=== PATIENT | female | born 1930 | race Caucasian/White ===

== ENCOUNTER 2016-06-01 07:46 | Emergency (ER) | payer MEDICARE, OTHER ==
[~2016-06-01] VITALS: Ht 170.2 cm; Wt 72.6 kg
[2016-06-01] MEDS ORDERED: IV NORMAL SALINE 1,000ML 1,000 ML IV SCH (08:01)
--- NOTE | 2016-06-01 08:12 | EKG ---
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
--- NOTE | 2016-06-01 08:14 | PHYS DOC ---
General Chief Complaint: MECHANICAL FALL Stated Complaint: MECHANICAL FALL;EYEBROW LAC Time Seen by MD: 07:52 Source: patient Exam Limitations: no limitations Problems: History of Present Illness Initial Comments Pt is 85/F to ED with fall injury. 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 She started getting dizzy with activity and even while lying in bed. Immediately prior to arrival pt stood up and began walking, said she was very dizzy and fell forward hitting right face on door knob. 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 No neck pain/n/v/focal neuro sx, pt c/o right sided GIL and cut over her eye. No vision changes/ear or nose drainage Td status unknown. No anticoagulation, pt only home med is ASA. Occurred: just prior to arrival Severity: moderate Injuries/Pain Location: head, face Context: lightheaded, lost balance Loss of Consciousness: no loss of consciousness Modifying Factors: worse with jarring, worse with movement, improves with rest Associated Symptoms: dizziness, headache, lightheadedness, trouble walking, other Allergies: Coded Allergies: No Known Drug Allergies (Unverified , 06/01/16) Past Medical History Medical History: other (breast cancer) Surgical History: other (Right mastectomy) Social History Smoker: non-smoker Alcohol: none Drugs: none Review of Systems Constitutional: denies chills, denies diaphoresis, denies fever, malaise Eyes: see HPIdenies blindness, denies blurred vision, denies foreign body sensation, denies photophobia Ears, Nose, Mouth, Throat: denies ear discharge, denies nose discharge, denies epistaxis, denies mouth swelling, denies throat pain, denies throat swelling Respiratory: denies cough, denies shortness of breath, denies wheezing Cardiovascular: denies chest pain, denies palpitations, denies syncope Gastrointestinal: denies abdominal pain, denies diarrhea, denies nausea, denies vomiting Genitourinary: denies discharge, denies frequency, denies hematuria Musculoskeletal: denies back pain, denies joint swelling, denies neck pain Skin: see HPI Psychiatric/Neurological: see HPI headachedenies numbness, denies paresthesia Physical Exam Head: other (R supraorbital swelling with brow lac no palpable bony deform, R malar swell/ecchy with skin avulsion no palpable deform, negative raccoon eyes no krishnan sign) Eyes: bilateral eye EOMI, bilateral eye PERRL, bilateral eye normal inspection Ears, Nose, Mouth, Throat: hearing grossly normal (hearing aids, no ear/nose disch ), no evidence of ENT injury, no dental injury Neck: non-tender, normal alignment Cardiovascular/Respiratory: normal peripheral pulses, no respiratory distress Gastrointestinal: non tender, soft Back: no CVA tenderness, no vertebral tenderness Extremities: no evidence of injury (small skin avulsion/ecchymoses medial right forearm), normal range of motion, non-tender 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, no motor/sensory deficits, alert, normal mood/affect, oriented x 3 Skin: normal color, warm/dry (lacs/avulsions as above) [place] Coma Score Best Eye Response: (4) open spontaneously Best Verbal Response: (5) oriented Best Motor Response: (6) obeys commands Sebastián Total: 15 Laceration/Wound Repair Laceration/Wound Repair : Wound Location: face (R supraorbital) Wound's Depth, Shape: superficial, linear Wound Length (cm): 1 Wound Explored: clean Irrigated w/ Saline (ccs): 50 Betadine Prep?: Yes Anesthesia: Lidocaine w/ Epi Volume Anesthetic (ccs): 3 Wound Debrided: minimal Wound Repaired With: sutures Suture Size/Type: 4:0, nylon Number of Sutures: 3 Sterile Dressing Applied?: Yes Progress Informed consent, sterile technique. Wound prepped by RN. Images no fracture. After analgesia 3 4-0 ethilon sutures with good wound edge approximation. Tolerated well no complication see departure for wound care. Orders, Labs, Meds EKG: NSR 65 bpm, T inversion v2 likely placement no STEMI Td vaccination, 1L NS IV bolus, rocephin 1g IV, tylenol 650mg given in ED. PATIENT: URIEL MAGALLANES ACCOUNT: [id number] : 1930 LOCATION: ER AGE: 85 SEX: F EXAM STATUS: REG ER ORD. PHYSICIAN: VERENICE KHAN DO REASON: Fall, R facial trauma PROCEDURE: CERVICAL SPINE WO CONTRAST Indication fall, neck pain. Axial images of the cervical spine were obtained. Images were reformatted in the coronal and sagittal planes. There is some scarring at the lung apices. Acute finding at either lung apex is not seen. A significant soft tissue finding in the neck is not seen. Review of axial images shows no acute finding. Spondylitic changes are noted. Facet arthropathy is seen at several levels. The reformatted images in the coronal and sagittal planes confirm degenerative changes but show no evidence of fracture. IMPRESSION: Spondylitic changes. No fracture seen PQRS Compliance Statement: One or more of the following individualized dose reduction techniques were utilized for this examination: 1. Automated exposure control 2. Adjustment of the mA and/or kV according to patient size 3. Use of iterative reconstruction technique DICTATED AND SIGNED BY: CHRIS WHALEY MD DATE: 06/01/16855 CC: ELLEN ACOSTA MD; VERENICE KHAN DO ~ PATIENT: URIEL MAGALLANES ACCOUNT: [id number] : 1930 LOCATION: ER AGE: 85 SEX: F EXAM STATUS: REG ER ORD. PHYSICIAN: VERENICE KHAN DO REASON: Fall, R facial trauma PROCEDURE: HEAD AND MAXILLOFACIAL WO Indication fall. Injury to the head and face. The head and maxillofacial structures were evaluated. Maxillofacial images were reformatted in the coronal and sagittal planes. No prior CT imaging of the chest is available. CT head: Findings. The calvarium appears unremarkable and the visualized paranasal sinuses appear normal. There is no subdural or epidural hematoma. The ventricles and sulci are within normal limits given the patient's age. No mass or midline shift is seen. There is no evidence of hemorrhage. Maxillofacial CT: Findings. Soft tissue injury over the right forehead and cheek is noted. The paranasal sinuses appear unremarkable. The zygomatic arches appear normal. No fracture is seen involving the mandible. No maxillary fracture is seen. The medial and lateral miller of the orbits appear normal. No facial fracture is seen. IMPRESSION: Negative study for facial fracture. No acute finding seen in the head PQRS Compliance Statement: One or more of the following individualized dose reduction techniques were utilized for this examination: 1. Automated exposure control 2. Adjustment of the mA and/or kV according to patient size 3. Use of iterative reconstruction technique DICTATED AND SIGNED BY: CHRIS WHALEY MD DATE: 06/01/16 0903 CC: ELLEN ACOSTA MD; VERENICE KHAN DO ~ Feeling better after hydration dizziness resolved. Pt expressed agreement/ understanding with treatment plan. Departure Time of Disposition: 10:21 Disposition: 01 HOME, SELF-CARE Diagnosis: Facial laceration, concussion, fall, hypovolemia, Condition: IMPROVED Patient Instructions: Concussion and Brain Injury, [id number], Dehydration, Adult, [id number], Fall Prevention and Home Safety, [id number]-[id number], Sutured Wound Care, Yvec-vp-[id number] Additional Instructions: Rest, no strenuous activity. Take care and request assistance with standing and walking. OTC tylenol as needed. Rx: cephalexin, bactroban, take as directed. Wound Care: Keep wound dry for 48 hours. After 48 hours wash wound twice daily with soap and warm water, blot dry. Change dressing and apply bactroban after each wash. Allow wound to air dry one hour daily. Follow up with your doctor in 3-5 days for wound check. Return to ED in 7 days for wound check/possible suture removal. Rx: cephalexin, bactroban VERENICE KHAN DO Jun 01, 2016 08:14
[2016-06-01] MEDS ORDERED: ACETAMINOPHEN 325 MG TABLET PO ONE (08:30)
[2016-06-01] MEDS ORDERED: TETANUS AND DIPHTHERIA TOX/PF 0.5 ML VIAL. VAX IM ONE (08:30)
[2016-06-01] MEDS ORDERED: CEFTRIAXONE SODIUM 1 GM in IV NORMAL SALINE 50ML 50 ML IV ONE (08:30)
[2016-06-01 08:34] LABS: BASO % 1 % (0-3); EOS # 0.1 x10^3/uL (0.0-0.7); EOS % 2 % (0-3); HEMATOCRIT 40.7 % (36.0-47.0); HEMOGLOBIN 13.3 g/dL (12.0-15.5); LYMPH # 0.9 x10^3/uL (1.0-4.8); LYMPH % 18 % (24-48); MEAN CORPUSCULAR HEMOGLOBIN 29 pg (25-35); MEAN CORPUSCULAR HGB CONC 33 g/dL (31-37); MEAN CORPUSCULAR VOLUME 88 fL (79-100); MONO # 0.4 x10^3/uL (0.0-1.1); MONO % 8 % (0-9); NEUT # 3.8 x10^3uL (1.8-7.7); NEUT % 71 % (31-73); PLATELET COUNT 214 x10^3/uL (140-400); RED BLOOD COUNT 4.62 x10^6/uL (3.50-5.40); RED CELL DISTRIBUTION WIDTH 13.7 % (11.5-14.5); WHITE BLOOD COUNT 5.3 x10^3/uL (4.0-11.0)
[2016-06-01 08:39] LABS: CALCIUM 8.3 mg/dL (8.5-10.1); CREATININE 0.8 mg/dL (0.6-1.0); GFR 67.8; POTASSIUM 4.2 mmol/L (3.5-5.1)
[2016-06-01] MEDS ORDERED: IV NORMAL SALINE 50ML 50 ML ONE (08:48)
[2016-06-01] MEDS ORDERED: CEFTRIAXONE SODIUM 1 GM VIAL IV ONE (08:48)
--- NOTE | 2016-06-01 09:04 | RAD ---
Indication fall, neck pain. Axial images of the cervical spine were obtained. Images were reformatted in the coronal and sagittal planes. There is some scarring at the lung apices. Acute finding at either lung apex is not seen. A significant soft tissue finding in the neck is not seen. Review of axial images shows no acute finding. Spondylitic changes are noted. Facet arthropathy is seen at several levels. The reformatted images in the coronal and sagittal planes confirm degenerative changes but show no evidence of fracture. IMPRESSION: Spondylitic changes. No fracture seen PQRS Compliance Statement: One or more of the following individualized dose reduction techniques were utilized for this examination: 1. Automated exposure control 2. Adjustment of the mA and/or kV according to patient size 3. Use of iterative reconstruction technique
[2016-06-01] MEDS ORDERED: LIDOCAINE 2%/EPI 1:100,000 20 ML VIAL. IJ ONE (09:15)
--- NOTE | 2016-06-01 09:30 | RAD ---
Indication fall. Injury to the head and face. The head and maxillofacial structures were evaluated. Maxillofacial images were reformatted in the coronal and sagittal planes. No prior CT imaging of the chest is available. CT head: Findings. The calvarium appears unremarkable and the visualized paranasal sinuses appear normal. There is no subdural or epidural hematoma. The ventricles and sulci are within normal limits given the patient's age. No mass or midline shift is seen. There is no evidence of hemorrhage. Maxillofacial CT: Findings. Soft tissue injury over the right forehead and cheek is noted. The paranasal sinuses appear unremarkable. The zygomatic arches appear normal. No fracture is seen involving the mandible. No maxillary fracture is seen. The medial and lateral miller of the orbits appear normal. No facial fracture is seen. IMPRESSION: Negative study for facial fracture. No acute finding seen in the head PQRS Compliance Statement: One or more of the following individualized dose reduction techniques were utilized for this examination: 1. Automated exposure control 2. Adjustment of the mA and/or kV according to patient size 3. Use of iterative reconstruction technique
[2016-06-01 10:15] VITALS: BP 138/64
[2016-06-01] MEDS ORDERED: MUPI15CR TP (10:27)
[2016-06-01] MEDS ORDERED: CEPH500C PO (10:27)
== END 2016-06-01 10:37 | disposition home or self-care (01) ==
LOC: ER 07:46
DX: S01.81XA Laceration without foreign body of other part of head, initial encounter (principal); K59.00 Constipation, unspecified; Z90.11 Acquired absence of right breast and nipple; W01.198A Fall on same level from slipping, tripping and stumbling with subsequent striking against other object, initial encounter; Y93.89 Activity, other specified; Y92.89 Other specified places as the place of occurrence of the external cause; Y99.8 Other external cause status
CPT/HCPCS: 36415; 70450; 70486; 72125; 80048; 85027; 90471; 90714; 93005; 96365; 99285; J0696; J7030

== ENCOUNTER 2016-06-04 11:07 | Emergency (ER) | payer MEDICARE, OTHER ==
[~2016-06-04] VITALS: Ht 170.2 cm; Wt 72.6 kg
[~2016-06-04 11:07] MED LIST: CEPH500C PO; MUPI15CR TP
--- NOTE | 2016-06-04 11:39 | PHYS DOC ---
General Chief Complaint: ALTERED MENTAL STATUS Stated Complaint: TREMORS Time Seen by MD: 11:16 Source: patient, EMS, old records Exam Limitations: no limitations Problems: History of Present Illness Initial Comments Pt is 85/F to ED via EMS for possible seizure. Pt states that immediately prior to arrival while sitting in chapel she began to feel very warm all over and diaphoretic. She's not certain, but thinks she may have passed out briefly. She reports that her left arm began shaking and jerking uncontrollably. This lasted approximately 10 minutes before resolving spontaneously. No headache, no numbness/tingling/radiating symptoms, no confusion/n/v/bowel or bladder incontinence. No prior seizure or similar symptoms. Pt was seen here 06/01 after falling, suffered a head injury and CT head/ maxillofacial/cervical spine all unremarkable on that day. She reports that she had been feeling better since the fall aside from constipation issues she has chronically. Timing/Duration: 1/2 hour Severity: moderate Modifying Factors: improves with other Associated Symptoms: other Allergies: Coded Allergies: No Known Drug Allergies (Unverified , 06/01/16) Past Medical History Medical History: other (breast cancer, DVT, osteoporosis) Surgical History: noncontributory (mastectomy, femur fracture) Social History Smoker: non-smoker Alcohol: none Drugs: none Review of Systems Constitutional: see HPIdenies chills, diaphoresisdenies fever, malaise weakness EENTM: denies eye pain, denies ear pain, denies nose pain Respiratory: denies cough, denies shortness of breath, denies wheezing Cardiovascular: denies chest pain, denies palpitations, syncope Gastrointestinal: denies abdominal pain, constipationdenies diarrhea, denies nausea, denies vomiting Genitourinary: denies dysuria, denies frequency, denies hematuria Musculoskeletal: see HPI back paindenies joint swelling Psychiatric/Neurological: see HPIdenies headache, denies numbness, denies paresthesia, denies tingling Hematologic/Lymphatic: see HPI Physical Exam General Appearance: WD/WN, no apparent distress Eyes: bilateral eye EOMI, bilateral eye PERRL, bilateral eye normal inspection Ear, Nose, Throat: hearing grossly normal, normal ENT inspection, normal pharynx, other (bruising/swelling/facial lacerations per HPI all appear to be healing well) Neck: non-tender, supple Respiratory: normal breath sounds, no respiratory distress Cardiovascular: normal peripheral pulses, regular rate, rhythm Gastrointestinal: non tender, soft Back: no CVA tenderness, no vertebral tenderness Extremities: non-tender, normal inspection 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 PHYSICIAN: VERENICE KHAN DO REASON: head trauma 06/01, poss seizure this am PROCEDURE: HEAD WO CONTRAST CT of the head without contrast, 06/04/2016: History: Recent injury to right eye after fall Comparison is made to a study from 06/01/2016. There is moderate cerebral atrophy. There is mild cerebellar atrophy. The ventricles are within normal limits in size. There is no shift of the midline structures. There is no evidence of acute intracranial hemorrhage or mass effect. Minimal faint deep white matter lucencies are compatible with chronic ischemic change. IMPRESSION: No acute intracranial abnormality is detected. PQRS Compliance Statement: One or more of the following individualized dose reduction techniques were utilized for this examination: 1. Automated exposure control 2. Adjustment of the mA and/or kV according to patient size 3. Use of iterative reconstruction technique DICTATED AND SIGNED BY: REINALDO FRANK MD DATE: 06/04/16 1210 CC: ELLEN ACOSTA MD; VERENICE KHAN DO ~ Lactic acid 1.9, other labs unremarkable. 1245: Dr Raza paged to discuss pt. 1259: Dr Raza instructs to have pt follow up at his office [facility] for EEG, further evaluation. Departure Time of Disposition: 13:04 Disposition: 01 HOME, SELF-CARE Diagnosis: Partial Seizure, Recent fall with head trauma Condition: GOOD Patient Instructions: Seizure, Adult, [id number] Additional Instructions: As discussed, go directly to Dr Raza (Neurology) office. [address] [place] [address] [id number] Return to ED with new or changing symptoms. VERENICE KHAN DO Jun 04, 2016 11:39
[2016-06-04 11:47] LABS: BASO # 0.1 x10^3/uL (0.0-0.2); BASO % 1 % (0-3); EOS # 0.1 x10^3/uL (0.0-0.7); EOS % 1 % (0-3); HEMATOCRIT 40.1 % (36.0-47.0); HEMOGLOBIN 12.9 g/dL (12.0-15.5); LYMPH # 0.6 x10^3/uL (1.0-4.8); LYMPH % 7 % (24-48); MEAN CORPUSCULAR HEMOGLOBIN 29 pg (25-35); MEAN CORPUSCULAR HGB CONC 32 g/dL (31-37); MEAN CORPUSCULAR VOLUME 89 fL (79-100); MONO # 0.6 x10^3/uL (0.0-1.1); MONO % 6 % (0-9); NEUT # 7.8 x10^3uL (1.8-7.7); NEUT % 85 % (31-73); PLATELET COUNT 231 x10^3/uL (140-400); RED BLOOD COUNT 4.51 x10^6/uL (3.50-5.40); RED CELL DISTRIBUTION WIDTH 14.2 % (11.5-14.5); WHITE BLOOD COUNT 9.2 x10^3/uL (4.0-11.0)
[2016-06-04 12:00] LABS: CALCIUM 8.4 mg/dL (8.5-10.1); CREATININE 0.8 mg/dL (0.6-1.0); GFR 67.8; POTASSIUM 5.1 mmol/L (3.5-5.1)
--- NOTE | 2016-06-04 12:12 | RAD ---
Portable chest, 06/04/2016: History: Fall, injury, possible seizure The heart size and pulmonary vascularity are normal. There is calcific plaquing of aorta. No acute infiltrate is seen. There appears to be a small granuloma in the left base. There is no evidence of pleural fluid or pneumothorax. The bony structures are demineralized. IMPRESSION: No acute cardiopulmonary abnormality is detected.
--- NOTE | 2016-06-04 12:15 | RAD ---
CT of the head without contrast, 06/04/2016: History: Recent injury to right eye after fall Comparison is made to a study from 06/01/2016. There is moderate cerebral atrophy. There is mild cerebellar atrophy. The ventricles are within normal limits in size. There is no shift of the midline structures. There is no evidence of acute intracranial hemorrhage or mass effect. Minimal faint deep white matter lucencies are compatible with chronic ischemic change. IMPRESSION: No acute intracranial abnormality is detected. PQRS Compliance Statement: One or more of the following individualized dose reduction techniques were utilized for this examination: 1. Automated exposure control 2. Adjustment of the mA and/or kV according to patient size 3. Use of iterative reconstruction technique
--- NOTE | 2016-06-04 12:21 | EKG ---
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
[2016-06-04 12:28] LABS: BILIRUBIN,URINE NEG (NEG); CLARITY,URINE CLEAR; COLOR,URINE YELLOW; GLUCOSE,URINE NEG (NEG); NITRITE,URINE NEG (NEG); UROBILINOGEN,URINE 0.2 mg/dL (0.2 mg/dL)
[2016-06-04 12:29] LABS: AMORPHOUS SEDIMENT,UR PRESENT /HPF; BACTERIA,URINE 0 /HPF (0-FEW); RBC,URINE 0 /HPF (0-2); SQUAMOUS EPITHELIAL CELL,UR OCC /LPF
[2016-06-04 13:25] VITALS: BP 165/81
== END 2016-06-04 13:35 | disposition home or self-care (01) ==
LOC: ER 11:07
DX: G40.109 Localization-related (focal) (partial) symptomatic epilepsy and epileptic syndromes with simple partial seizures, not intractable, without status epilepticus (principal); M81.0 Age-related osteoporosis without current pathological fracture; Z86.718 Personal history of other venous thrombosis and embolism
CPT/HCPCS: 36415; 70450; 71010; 80048; 81001; 82550; 83605; 84484; 85027; 93005; 99285-25

== ENCOUNTER → 2016-06-05 | Outpatient (CLI) | payer MEDICARE, OTHER ==
[2016-06-04 13:25] VITALS: BP 165/81
--- NOTE | 2016-06-05 16:10 | RAD ---
EXAM: Carotid Doppler sonogram. HISTORY: Fall. Seizure. TECHNIQUE: Doppler sonographic evaluation of the neck was performed and static images are submitted for review. FINDINGS: There is bilateral common carotid artery intimal thickening. There is mild mixed calcified and noncalcified atherosclerotic plaque within the bilateral carotid bulbs and internal carotid arteries and right external carotid artery. The peak systolic velocity within the right common carotid artery is 71 cm/sec. The peak systolic velocities within the right proximal, mid and distal internal carotid artery are 58 cm/sec, 77 cm/sec, and 68 cm/sec, respectively. The peak systolic velocity within the left common carotid artery is 93 cm/sec. The peak systolic velocities within the left proximal, mid and distal internal carotid artery are 63 cm/sec, 73 cm/sec, and 72 cm/sec, respectively. There is normal antegrade flow within both vertebral arteries. IMPRESSION: 1. No Doppler evidence of greater than 50% stenosis within the internal carotid arteries. 2. Mild mixed calcified and noncalcified atherosclerotic plaque within the bilateral carotid bulbs and internal carotid arteries and right external carotid artery and intimal thickening involving the common carotid arteries. PQRS Statement: NASCET criteria were utilized for this exam.
== END | disposition home or self-care (01) ==
LOC: US 14:05
PROVIDERS: ATTEND Specialist
DX: I65.23 Occlusion and stenosis of bilateral carotid arteries (principal)
CPT/HCPCS: 93880

== ENCOUNTER → 2016-06-16 | Outpatient (CLI) | payer MEDICARE, OTHER ==
[2016-06-04 13:25] VITALS: BP 165/81
--- NOTE | 2016-06-16 16:14 | RAD ---
Lumbar spine, 2 views, 06/16/2016: History: Low back pain, fall The bony structures are demineralized. No lumbar fracture or dislocation is identified. There appears to be mild superior endplate deformity at T12. There is moderate disc space narrowing at multiple levels with moderate scattered spurs. There are moderate degenerative changes involving the facet joints bilaterally in the lower lumbar spine. Aortoiliac calcific plaquing is present. Bilateral hip prostheses are noted. IMPRESSION: 1. Demineralization. 2. Moderate multilevel degenerative change. 3. No lumbar spine fracture is identified. 4. Mild superior endplate deformity at T12, of indeterminate age.
== END | disposition home or self-care (01) ==
LOC: DXRAD 15:05
PROVIDERS: ATTEND Specialist
DX: M47.896 Other spondylosis, lumbar region (principal); M81.0 Age-related osteoporosis without current pathological fracture
CPT/HCPCS: 72100

== ENCOUNTER → 2016-12-01 | Outpatient (CLI) | payer MEDICARE, OTHER | END | disposition home or self-care (01) | LOC: SPEC 07:40 | PROVIDERS: ATTEND Specialist | DX: Z13.6 Encounter for screening for cardiovascular disorders (principal) | CPT/HCPCS: 80061 ==